=== PATIENT | female | born 1935 | race Caucasian/White ===

== ENCOUNTER 2017-05-11 09:56 | Inpatient (IN) | payer BC ==
[~2017-05-11] VITALS: Ht 157.5 cm; Wt 57.5 kg
[2017-05-11 10:50] LABS: Basophils # (auto) 0.1 uL; Basophils % (auto) 2.1 % (0.0-2.0); Eosinophils # (auto) 0.2 uL; Eosinophils % (auto) 3.5 % (0.0-7.0); Hematocrit 47.5 % (36.0-46.0); Hemoglobin 15.9 g/dL (12.2-16.2); Lymphocytes # (auto) 2.2 uL; Lymphocytes % (auto) 32.3 % (10.0-50.0); Mean Corpuscular Hemoglobin 27.3 pg (28.0-32.0); Mean Corpuscular Hgb Conc. 33.5 g/dL (32.0-36.0); Mean Corpuscular Volume 81.4 fL (80.0-100.0); Monocytes # (auto) 0.5 uL; Monocytes % (auto) 6.6 % (0.0-12.0); Neutrophils # (auto) 3.8 uL; Neutrophils % (auto) 55.5 % (37.0-80.0); Platelet Count (auto) 308 10^3/uL (140-450); Red Blood Cells 5.83 10^6/uL (4.0-5.20); Red Cell Distribution Width 13.6 % (11.8-14.3); White Blood Cell 6.9 10^3/uL (4.4-10.8)
[2017-05-11 11:18] LABS: Alanine Aminotransferase 23 U/L (13-56); Albumin 3.7 g/dL (3.4-5.0); Alkaline Phosphatase 89 U/L (45-117); Anion Gap 9 (5-15); Aspartate Aminotransferase 26 U/L (15-37); BUN/Creatinine Ratio 16.9; Bilirubin, Total 1.1 mg/dL (0.2-1.0); Blood Urea Nitrogen 15 mg/dL (7-18); Calcium 9.3 mg/dL (8.5-10.1); Carbon Dioxide 24 mmol/L (21-32); Chloride 105 mmol/L (98-107); GFR African American 78 mL/min; GFR Non-African American 65 mL/min; Glucose 92 mg/dL (74-106); Sodium 138 mmol/L (136-145); Total Protein 7.7 g/dL (6.4-8.2)
[2017-05-11] MEDS ORDERED: HYDROcodone-ACET 5/325MG TAB PO PRN (12:15)
[2017-05-11] MEDS ORDERED: ONDANSETRON HCL 4 MG/2 ML VIAL IV PRN (12:15)
[2017-05-11] MEDS ORDERED: ACETAMINOPHEN 500 MG TAB PO ONE (12:15)
[2017-05-11] MEDS ORDERED: NITROGLYCERIN 0.4 MG SL TAB SL PRN (12:15)
[2017-05-11] MEDS ORDERED: ASPirin 81 mg TAB PO ONE (12:15)
[2017-05-11] MEDS ORDERED: ACETAMINOPHEN 500 MG TAB PO PRN (12:15)
[2017-05-11] MEDS ORDERED: LORazepam 2MG/ML-1ML VIAL IV ONE (12:15)
[2017-05-11] MEDS ORDERED: MORPHINE SULFATE 10 MG/ML INJ 1ML SDV IV PRN ×2 (12:15)
[2017-05-11 12:43] LABS: Cholesterol 166 mg/dL (< 200); HDL Cholesterol 44 mg/dL (40-59); LDL Cholesterol 102 mg/dL (< 100); Triglycerides 227 mg/dL (< 150)
[2017-05-11] MEDS ORDERED: LABETALOL HCL 5 MG/ML ML 20ML VIAL IV PRN (16:00)
[2017-05-11] MEDS ORDERED: ACETAMINOPHEN 325 MG TAB PO PRN (16:00)
[2017-05-11] MEDS: FAMOTIDINE 20 MG TAB PO SCH (17:33)
[2017-05-11 22:00] VITALS: BP 140/64
[2017-05-11] MEDS ORDERED: ATORVASTATIN 20 MG TAB PO SCH ×4 (22:00)
[2017-05-11] MEDS: ASPIRIN-DIPYRIDAMOLE (25/200MG) CAPSULE PO SCH (22:06)
[2017-05-12 05:00] VITALS: BP 122/63
[2017-05-12] MEDS ORDERED: METO25TA62 PO (06:19)
[2017-05-12] MEDS ORDERED: ASPI81CH43 GT (06:19)
[2017-05-12] MEDS ORDERED: ATOR20TA50 PO (06:19)
[2017-05-12 06:47] LABS: Urine Bacteria NONE SEEN /hpf (None Seen); Urine Blood Negative /uL (Negative); Urine Mucus FEW (None Seen); Urine Specific Gravity 1.011 (1.001-1.035); Urine WBC 3 /hpf (0 - 5)
[2017-05-12 07:05] LABS: Basophils # (auto) 0.1 uL; Basophils % (auto) 0.6 % (0.0-2.0); Eosinophils # (auto) 0.1 uL; Hematocrit 45.3 % (36.0-46.0); Hemoglobin 15.4 g/dL (12.2-16.2); Lymphocytes # (auto) 2.1 uL; Lymphocytes % (auto) 17.9 % (10.0-50.0); Mean Corpuscular Hemoglobin 27.1 pg (28.0-32.0); Mean Corpuscular Hgb Conc. 33.9 g/dL (32.0-36.0); Monocytes # (auto) 0.8 uL; Monocytes % (auto) 6.7 % (0.0-12.0); Neutrophils # (auto) 8.8 uL; Neutrophils % (auto) 73.8 % (37.0-80.0); Platelet Count (auto) 332 10^3/uL (140-450); Red Blood Cells 5.66 10^6/uL (4.0-5.20); Red Cell Distribution Width 13.5 % (11.8-14.3); White Blood Cell 11.9 10^3/uL (4.4-10.8)
[2017-05-12 07:35] LABS: BUN/Creatinine Ratio 18.4; Calcium 8.6 mg/dL (8.5-10.1); Potassium 3.9 mmol/L (3.5-5.1)
[2017-05-12 09:00] VITALS: BP 119/74
[2017-05-12] MEDS: FAMOTIDINE 20 MG TAB PO SCH (09:48)
[2017-05-12] MEDS: ASPIRIN-DIPYRIDAMOLE (25/200MG) CAPSULE PO SCH (09:48)
[2017-05-12] MEDS ORDERED: ASPirin 81 mg TAB PO SCH (10:00)
[2017-05-12] MEDS ORDERED: amLODIPine BESYLATE 5 MG TAB PO SCH (10:00)
[2017-05-12 13:00] VITALS: BP 121/74
[2017-05-12 16:28] VITALS: BP 141/71
== END 2017-05-12 19:00 | disposition home or self-care (01) | DRG 103 ==
LOC: ER 09:56 → TELE 09:57 → EDBD 09:57 → TELE-WESTW 18:03
PROVIDERS: ADMIT Internal Medicine; ATTEND Internal Medicine
DX: G44.40 Drug-induced headache, not elsewhere classified, not intractable (principal); G45.9 Transient cerebral ischemic attack, unspecified; I35.1 Nonrheumatic aortic (valve) insufficiency; R47.01 Aphasia; J98.4 Other disorders of lung; E78.5 Hyperlipidemia, unspecified; I12.9 Hypertensive chronic kidney disease with stage 1 through stage 4 chronic kidney disease, or unspecified chronic kidney disease; N18.9 Chronic kidney disease, unspecified; T46.3X5A Adverse effect of coronary vasodilators, initial encounter; Y92.89 Other specified places as the place of occurrence of the external cause; Z79.82 Long term (current) use of aspirin; Z79.899 Other long term (current) drug therapy; Z82.3 Family history of stroke; Z86.73 Personal history of transient ischemic attack (TIA), and cerebral infarction without residual deficits; Z90.710 Acquired absence of both cervix and uterus
CPT/HCPCS: 36415; 70450; 70551; 71046; 80048; 80053; 80061; 81001; 83735; 84443; 84484; 85025; 93005; 93306; 93886; 96374; 99291

== ENCOUNTER 2020-05-22 19:31 | Emergency (ER) | payer BC ==
[~2020-05-22] VITALS: Ht 154.9 cm; Wt 65.8 kg
[~2020-05-22 19:31] MED LIST: ASPI81CH43 GT; ATOR20TA50 PO; METO25TA93 PO
[2020-05-22] MEDS ORDERED: cloNIDine HCL 0.1 MG TAB ONE (20:12)
[2020-05-22] MEDS ORDERED: cloNIDine HCL 0.1 MG TAB PO ONE (22:30)
[2020-05-22 23:35] LABS: Basophils # (auto) 0.1 10 ^3/uL (0-0.2); Basophils % (auto) 0.5 % (0.0-2.0); Eosinophils # (auto) 0.2 10 ^3/uL (0-0.8); Eosinophils % (auto) 1.3 % (0.0-7.0); Hematocrit 38.8 % (36.0-46.0); Hemoglobin 12.9 g/dL (12.2-16.2); Lymphocytes # (auto) 2.2 10 ^3/uL (0.4-5.4); Lymphocytes % (auto) 18.1 % (10.0-50.0); Mean Corpuscular Hemoglobin 25.7 pg (28.0-32.0); Mean Corpuscular Hgb Conc. 33.3 g/dL (32.0-36.0); Mean Corpuscular Volume 77.1 fL (80.0-100.0); Monocytes # (auto) 0.7 10 ^3/uL (0-1.3); Monocytes % (auto) 5.7 % (0.0-12.0); Neutrophils # (auto) 8.9 10 ^3/uL (1.6-8.6); Neutrophils % (auto) 74.4 % (37.0-80.0); Nucleated Red Blood Cells % 0.1 %; Platelet Count (auto) 283 10^3/uL (140-450); Red Blood Cells 5.04 10^6/uL (4.0-5.20); Red Cell Distribution Width 13.4 % (11.8-14.3); White Blood Cell 11.9 10^3/uL (4.4-10.8)
[2020-05-23 00:02] LABS: Chloride 106 mmol/L (98-107); Potassium 4.1 mmol/L (3.5-5.1); Sodium 137 mmol/L (136-145)
[2020-05-23 00:07] LABS: Alanine Aminotransferase 19 U/L (13-56); Albumin 3.6 g/dL (3.4-5.0); Anion Gap 8 (5-15); Aspartate Aminotransferase 20 U/L (15-37); BUN/Creatinine Ratio 17.4; Bilirubin, Total 0.9 mg/dL (0.2-1.0); Blood Urea Nitrogen 19 mg/dL (7-18); Calcium 8.9 mg/dL (8.5-10.1); Carbon Dioxide 23 mmol/L (21-32); GFR African American 62 mL/min; GFR Non-African American 51 mL/min; Glucose 95 mg/dL (74-106)
[2020-05-23 00:11] LABS: Alkaline Phosphatase 74 U/L (45-117)
[2020-05-23 02:00] VITALS: BP 113/53
== END 2020-05-23 03:36 | disposition home or self-care (01) ==
LOC: ER 19:31
DX: G45.9 Transient cerebral ischemic attack, unspecified (principal); E78.5 Hyperlipidemia, unspecified; I10 Essential (primary) hypertension; Z90.710 Acquired absence of both cervix and uterus
CPT/HCPCS: 36415; 70450; 71045; 80053; 83880; 84484; 85025; 93005

== ENCOUNTER → 2022-02-18 | Outpatient (CLI) | payer OTHER | END | disposition home or self-care (01) | LOC: XY 11:24 | PROVIDERS: ATTEND Internal Medicine | DX: G45.9 Transient cerebral ischemic attack, unspecified (principal) | CPT/HCPCS: 93886 ==